=== PATIENT | female | born 1970 | race Caucasian/White ===

== ENCOUNTER 2018-06-02 19:30 | Emergency (ER) | payer OTHER ==
[~2018-06-02] VITALS: Ht 152.4 cm; Wt 73.0 kg
[2018-06-02] MEDS ORDERED: IBUPROFEN 600MG TABLET PO ONE (22:00)
[2018-06-02 22:29] VITALS: BP 145/88
== END 2018-06-02 23:27 | disposition home or self-care (01) ==
LOC: ER 19:30
DX: S09.8XXA Other specified injuries of head, initial encounter (principal); E11.9 Type 2 diabetes mellitus without complications; W01.0XXA Fall on same level from slipping, tripping and stumbling without subsequent striking against object, initial encounter; Y93.01 Activity, walking, marching and hiking; Y92.9 Unspecified place or not applicable
CPT/HCPCS: 99284